=== PATIENT | male | born 1970 ===

== ENCOUNTER 2020-10-17 06:11 | Day surgery (SDC) | payer OTHER ==
[~2020-10-17] VITALS: Ht 170.2 cm; Wt 88.4 kg
[~2020-10-17 06:11] MED LIST: HYDACE5 PO; MAGNESIUM PO; MELATONIN5 M1 PO; MULVITA PO; NAPR500 PO; NICO21TP TOP; Vitamin C100 M1 PO
--- NOTE | 2020-10-17 06:45 | NUR ---
Ambulatory in Day Surgery History, Chart, Medications and Allergies reviewed before start of procedure.Lungs clear T/O to Auscultation. Patient confirms NPO status and agrees with scheduled surgery. Pre-Op teaching done. Pt verbalizes understanding.
--- NOTE | 2020-10-17 10:21 | NUR ---
Patient up to Ambulate independently. Gait steady. Discharge instructions reviewed with patient. Patient verbalizes understanding. Copy given to patient to take home. Discharged via wheelchair to private car for ride home WITH .
== END 2020-10-17 22:51 | disposition home or self-care (01) ==
LOC: ORSCMMR 06:11 → ORD 07:30 → ORSCMMR 07:30
PROVIDERS: Surgery
PROC: 06BY0ZC Excision of Hemorrhoidal Plexus, Open Approach (ICD-10-PCS; principal; 2020-10-17 07:30)
DX: K64.2 Third degree hemorrhoids (principal); F17.210 Nicotine dependence, cigarettes, uncomplicated
CPT/HCPCS: 88304; A9270; J0330; J0694; J1885; J2250; J3010; J7120

== ENCOUNTER 2023-12-24 07:30 | Day surgery (SDC) | payer BC ==
[~2023-12-24] VITALS: Ht 170.2 cm; Wt 82.9 kg
[~2023-12-24 07:30] MED LIST changes: +BENZ100A PO; +CYCL10 PO; +LISI20 PO
[2023-12-24] MEDS ORDERED: propofoL 50 ML IV ONE (07:38)
[2023-12-24] MEDS ORDERED: Lactated Ringer's 1,000 ML IV ONE ×2 (07:38→08:20)
[2023-12-24 09:44] VITALS: BP 103/68
== END 2023-12-24 09:35 | disposition home or self-care (01) ==
LOC: ORSCSDS 07:30
PROVIDERS: Surgery
PROC: 0DBN8ZX Excision of Sigmoid Colon, Via Natural or Artificial Opening Endoscopic, Diagnostic (ICD-10-PCS; principal; 2023-12-24 08:45)
PROC: 0DBL8ZX Excision of Transverse Colon, Via Natural or Artificial Opening Endoscopic, Diagnostic (ICD-10-PCS; principal; 2023-12-24 08:45)
DX: Z12.11 Encounter for screening for malignant neoplasm of colon (principal); Z86.010 Personal history of colon polyps; D12.3 Benign neoplasm of transverse colon; D12.5 Benign neoplasm of sigmoid colon; E78.5 Hyperlipidemia, unspecified; I10 Essential (primary) hypertension; F17.210 Nicotine dependence, cigarettes, uncomplicated; Z79.899 Other long term (current) drug therapy
CPT/HCPCS: 88305; J2704; J7120